=== PATIENT | male | born 1955 | race Caucasian/White ===

== ENCOUNTER → 2020-06-07 | Outpatient (CLI) | payer OTHER ==
[2020-06-07 15:24] LABS: International Normalized Ratio 1.51; Prothrombin Time Results 15.8 Sec (9.7-11.5)
== END | disposition home or self-care (01) ==
LOC: LAB 13:10 → LAB SHORT 13:10
PROVIDERS: Family Medicine
DX: Z79.01 Long term (current) use of anticoagulants (principal); Z51.81 Encounter for therapeutic drug level monitoring
CPT/HCPCS: 85610

== ENCOUNTER → 2020-08-30 | Outpatient (CLI) | payer OTHER ==
[2020-08-30 15:20] LABS: International Normalized Ratio 2.32; Prothrombin Time Results 23.7 Sec (9.7-11.5)
== END | disposition home or self-care (01) ==
LOC: LAB SHORT 12:57 → LAB 12:57
PROVIDERS: Family Medicine
DX: Z79.01 Long term (current) use of anticoagulants (principal); Z51.81 Encounter for therapeutic drug level monitoring
CPT/HCPCS: 85610

== ENCOUNTER → 2020-11-01 | Outpatient (CLI) | payer OTHER ==
[2020-11-01 14:48] LABS: International Normalized Ratio 2.69; Prothrombin Time Results 27.2 Sec (9.7-11.5)
== END | disposition home or self-care (01) ==
LOC: LAB SHORT 10:50 → LAB 10:50
PROVIDERS: Family Medicine
DX: Z79.01 Long term (current) use of anticoagulants (principal); Z51.81 Encounter for therapeutic drug level monitoring
CPT/HCPCS: 85610

== ENCOUNTER → 2021-06-02 | Outpatient (CLI) | payer OTHER ==
[2021-06-02 14:57] LABS: BASOPHILS ABSOLUTE AUTO 0.05 K/mm3 (0.00-0.23); BASOPHILS PERCENT AUTO 1 % (0-2); EOSINOPHILS ABSOLUTE AUTO 0.11 K/mm3 (0.00-0.68); EOSINOPHILS PERCENT AUTO 1 % (0-6); IMMATURE GRAN ABSOLUTE AUTO 0.02 K/mm3 (0.00-0.10); IMMATURE GRAN PERCENT AUTO 0 % (0-1); LYMPHOCYTES ABSOLUTE AUTO 1.86 K/mm3 (0.84-5.20); LYMPHOCYTES PERCENT AUTO 22 % (21-46); MONOCYTES ABSOLUTE AUTO 0.63 K/mm3 (0.16-1.47); MONOCYTES PERCENT AUTO 8 % (4-13); Mean Corpuscular HGB 31.5 pg (26.0-34.0); Mean Corpuscular HGB Conc 33.3 g/dL (31.5-36.5); Mean Corpuscular Volume 94 fL (80-100); Mean Platelet Volume 9.6 fL (9.1-12.4); NEUTROPHILS ABSOLUTE AUTO 5.77 K/mm3 (1.96-9.15); NEUTROPHILS PERCENT AUTO 68 % (41-73); Platelet Count 409 K/mm3 (150-400); RDW Coefficient Variation 12.5 % (11.7-14.2); RDW Standard Deviation 43.2 fL (35.1-46.3); Red Blood Cell Count 4.13 M/mm3 (4.30-5.90); White Blood Cell Count 8.44 K/mm3 (4.00-11.30)
[2021-06-02 15:16] LABS: Alanine Aminotransfer (ALT/SGP 45 U/L (12-78); Albumin, Blood 3.9 g/dL (3.4-5.0); Albumin/Globulin Ratio 0.9 (0.8-1.8); Alk Phos 115 U/L (50-136); Anion Gap 9 mmol/L (6-16); Aspartate Aminotrans (AST/SGOT 18 U/L (12-37); Bilirubin, Total 0.3 mg/dL (0.1-1.0); Blood Urea Nitrogen 21 mg/dL (8-24); Bun/Creatinine Ratio 20.4 (12.0-20.0); CO2, Blood 24 mmol/L (21-32); Calcium, Blood 9.7 mg/dL (8.5-10.1); Chloride, Blood 105 mmol/L (98-108); Creatinine, Blood 1.03 mg/dL (0.60-1.20); Globulin, Blood 4.2 g/dL (2.2-4.0); Glomerular Filtration Rate >60 (60-); Glucose, Blood 108 mg/dL (70-99); Potassium, Blood 4.4 mmol/L (3.5-5.5); Prostate Specific Antigen 0.261 ng/mL (0.000-4.000); Sodium, Blood 138 mmol/L (136-145); Total Protein, Blood 8.1 g/dL (6.4-8.2)
== END | disposition home or self-care (01) ==
LOC: LAB SHORT 09:10
PROVIDERS: Physician Assistant
DX: Z12.5 Encounter for screening for malignant neoplasm of prostate (principal); I10 Essential (primary) hypertension
CPT/HCPCS: 80053; 85025; G0103

== ENCOUNTER → 2022-09-22 | Outpatient (CLI) | payer OTHER | END | disposition home or self-care (01) | LOC: LAB SHORT 17:38 | DX: L60.2 Onychogryphosis (principal); B35.1 Tinea unguium | CPT/HCPCS: 87220 ==

== ENCOUNTER 2022-10-01 09:20 | Day surgery (SDC) | payer OTHER ==
[~2022-10-01] VITALS: Ht 172.7 cm; Wt 81.4 kg
[2022-10-01] MEDS ORDERED: METO50ER (09:48)
[2022-10-01] MEDS ORDERED: Coumadin2 MG (09:49)
[2022-10-01] MEDS ORDERED: ATOR10 (09:49)
[2022-10-01] MEDS ORDERED: Amlodipine Bes2.5 MG (09:49)
[2022-10-01] MEDS ORDERED: HYDCHL25 (09:50)
[2022-10-01] MEDS ORDERED: Lisinopril2.5 MG (09:51)
== END 2022-10-01 11:49 | disposition home or self-care (01) ==
LOC: ORSCSDS 09:20
PROVIDERS: Student in an Organized Health Care Education/Training Program
PROC: 0DBN8ZX Excision of Sigmoid Colon, Via Natural or Artificial Opening Endoscopic, Diagnostic (ICD-10-PCS; principal; 2022-10-01 10:45)
PROC: 0DBK8ZX Excision of Ascending Colon, Via Natural or Artificial Opening Endoscopic, Diagnostic (ICD-10-PCS; principal; 2022-10-01 10:45)
PROC: 0DBL8ZX Excision of Transverse Colon, Via Natural or Artificial Opening Endoscopic, Diagnostic (ICD-10-PCS; principal; 2022-10-01 10:45)
DX: R19.5 Other fecal abnormalities (principal); D12.5 Benign neoplasm of sigmoid colon; D12.2 Benign neoplasm of ascending colon; D12.3 Benign neoplasm of transverse colon; K57.30 Diverticulosis of large intestine without perforation or abscess without bleeding; K64.4 Residual hemorrhoidal skin tags; I10 Essential (primary) hypertension; E78.5 Hyperlipidemia, unspecified; Z87.891 Personal history of nicotine dependence; G40.909 Epilepsy, unspecified, not intractable, without status epilepticus; Z79.01 Long term (current) use of anticoagulants; Z79.899 Other long term (current) drug therapy
CPT/HCPCS: 88305; J2405; J2704; J7120

== ENCOUNTER → 2022-12-09 | Outpatient (CLI) | payer OTHER ==
[~2022-12-09] MED LIST: ATOR10; Amlodipine Bes2.5 MG; Coumadin2 MG; HYDCHL25; Lisinopril2.5 MG; METO50ER; XARELTO20 M1 PO
== END ==
LOC: LAB SHORT 07:45 → PLD 07:45
DX: R91.8 Other nonspecific abnormal finding of lung field (principal)
CPT/HCPCS: 88305; 88341; 88342

== ENCOUNTER 2022-12-10 06:54 | Inpatient (IN) | payer OTHER ==
[~2022-12-10] VITALS: Ht 172.7 cm; Wt 83.7 kg
[~2022-12-10 06:54] MED LIST changes: -ATOR10; +ATOR10 PO; -METO50ER; +METO50ER PO; -XARELTO20 M1 PO
[2022-12-10 07:33] LABS: BASOPHILS ABSOLUTE AUTO 0.05 K/mm3 (0.00-0.23); BASOPHILS PERCENT AUTO 0 % (0-2); EOSINOPHILS ABSOLUTE AUTO 0.08 K/mm3 (0.00-0.68); EOSINOPHILS PERCENT AUTO 1 % (0-6); Hematocrit 20.9 % (37.0-53.0); Hemoglobin 7.1 g/dL (13.5-17.5); IMMATURE GRAN ABSOLUTE AUTO 0.08 K/mm3 (0.00-0.10); IMMATURE GRAN PERCENT AUTO 1 % (0-1); LYMPHOCYTES ABSOLUTE AUTO 1.23 K/mm3 (0.84-5.20); LYMPHOCYTES PERCENT AUTO 8 % (21-46); MONOCYTES ABSOLUTE AUTO 0.87 K/mm3 (0.16-1.47); MONOCYTES PERCENT AUTO 6 % (4-13); Mean Corpuscular Volume 88 fL (80-100); Mean Platelet Volume 8.8 fL (9.1-12.4); NEUTROPHILS ABSOLUTE AUTO 12.77 K/mm3 (1.96-9.15); NEUTROPHILS PERCENT AUTO 85 % (41-73); Platelet Count 546 K/mm3 (150-400); RDW Coefficient Variation 13.5 % (11.7-14.2); RDW Standard Deviation 43.1 fL (35.1-46.3); Red Blood Cell Count 2.37 M/mm3 (4.30-5.90); White Blood Cell Count 15.08 K/mm3 (4.00-11.30)
[2022-12-10] MEDS ORDERED: XARELTO20 M1 PO (07:43)
[2022-12-10 07:51] LABS: Albumin, Blood 2.5 g/dL (3.4-5.0); Albumin/Globulin Ratio 0.5 (0.8-1.8); Bilirubin, Direct 0.1 mg/dL (0.0-0.3); Bilirubin, Indirect 0.2 mg/dL (0.1-0.7); Bilirubin, Total 0.3 mg/dL (0.1-1.0); Calcium, Blood 9.2 mg/dL (8.5-10.1); Globulin, Blood 4.7 g/dL (2.2-4.0); Magnesium, Blood 1.8 mg/dL (1.6-2.4); Potassium, Blood 4.3 mmol/L (3.5-5.5); Total Protein, Blood 7.2 g/dL (6.4-8.2)
[2022-12-10 08:44] LABS: Influenza A, PCR NEGATIVE (NEGATIVE); Influenza B, PCR NEGATIVE (NEGATIVE); Resp Syncytial Virus, PCR NEGATIVE (NEGATIVE); SARS-Cov-2 (COVID-19) PCR, MMC NEGATIVE (NEGATIVE)
[2022-12-10 09:51] LABS: Source, Urine Clean Catch
[2022-12-10 09:59] LABS: Appearance, Urine Clear (Clear); Bilirubin, Urine Neg (Neg); Blood, Urine Neg (Neg); Color, Urine Yellow (P-Yellow); Glucose Qualitative, Urine Neg (Neg); Ketones, Urine Neg (Neg); Leukocyte Esterase, Urine Neg (Neg); Nitrite, Urine Neg (Neg); Protein, Urine Neg (Neg); Specific Gravity, Urine 1.005 (1.003-1.022); Urobilinogen, Urine NORM (Normal)
--- NOTE | 2022-12-10 12:00 | NUR ---
ED Palliative Care Consult Spoke with Dr Rich and Hospitalist Rigoberto. Discussed case and concerns. Pt appears to have new diagnosis of metastatic cancer. Pt had biospy from bulb grader yesterday. Pt to be admitted under observation and may benefit from supportive visit. Pt resting on gurney upon arrival. Pt A&OX4 and denies pain at this time. Pt's spouse at bedside. Offered therapeutic listening as Pt and spouse report feeling overwhelmed. Offered suggestions to assist with easing burden. Continued supportive visit. Pt reports having felt weak and tired for quite some time and is now struggling with mobility. Brief gentle discusion regarding planning for the future and the potential need for caregiver assistance. Discussed considering applying for APD. Continued supportive visit. Discussed the importance of speaking with oncologist and asking questions in order to make a well informed decision. Pt and spouse agreeable with continued PC visits. Spoke with NAMITA Perla and discussed case. Palliative Care will remain available
--- NOTE | 2022-12-10 14:00 | NUR ---
PT ARRIVED TO ROOM VIA W/C FROM ED. ABLE TO TRANSFER SELF IN TO BED. NOT PRESENT ON ARRIVAL. VERY KIND WORDS FROM PT. ADMISSION BEING COMPLETED. 1 UNIT OF PRBC ORDERED AND WILL BE STARTED SOON. PT WITH OCC WELLING OF TEARS BUT HE QUICKLY STOPS. ENCOURAGED TO TALK HE FEELS THE NEED. STATES HE HAS NUMBNESS THAT COMES AND GOES IN HIS LEGS THAT IS MORE NOTICEABLE WHEN LAYING DOWN OR RECLINING. USES A CANE FOR MOBILITY.
[2022-12-10 14:28] LABS: Percent Saturation 10.6 % (20.0-50.0)
--- NOTE | 2022-12-10 18:35 | NUR ---
SHIFT SUMMARY UP IN CHAIR FOR MEAL. STATED HE NEEDS TO START EATING MORE DUE TO A DECREASED APPETITE. HAS A LARGE LUMP ON THE R SIDE OF HIS HEAD THAT HE REPORTED HE ORIGINALLY THOUGHT WAS FROM HITTING IT ON THE CAR DOOR AND THEN THE REFRIGERATOR DOOR. CONTINUES TO OCC WELL UP WITH TEARS AND QUICKLY ATTEMPTS TO STOP IT. ENCOURAGED AGAIN TO EXPRESS HIS FEELINGS AND THAT ITS OK TO CRY. STATED HE FEELS VERY BAD ABOUT HIS NEEDING TO DO MORE AND MORE AT HOME. DID COME UP FOR A SHORT TIME THIS AFTERNOON AND SAT WITH HIM. CURRENTLY DENIES PAIN. WILL REPORT CONDITION TO ONCOMING SHIFT.
[2022-12-11 05:02] LABS: BASOPHILS ABSOLUTE AUTO 0.08 K/mm3 (0.00-0.23); BASOPHILS PERCENT AUTO 1 % (0-2); EOSINOPHILS ABSOLUTE AUTO 0.22 K/mm3 (0.00-0.68); EOSINOPHILS PERCENT AUTO 1 % (0-6); Hematocrit 22.5 % (37.0-53.0); Hemoglobin 7.7 g/dL (13.5-17.5); IMMATURE GRAN ABSOLUTE AUTO 0.13 K/mm3 (0.00-0.10); IMMATURE GRAN PERCENT AUTO 1 % (0-1); LYMPHOCYTES ABSOLUTE AUTO 1.86 K/mm3 (0.84-5.20); LYMPHOCYTES PERCENT AUTO 11 % (21-46); MONOCYTES ABSOLUTE AUTO 1.37 K/mm3 (0.16-1.47); MONOCYTES PERCENT AUTO 8 % (4-13); Mean Corpuscular HGB 29.6 pg (26.0-34.0); Mean Corpuscular HGB Conc 34.2 g/dL (31.5-36.5); Mean Corpuscular Volume 87 fL (80-100); Mean Platelet Volume 8.8 fL (9.1-12.4); NEUTROPHILS ABSOLUTE AUTO 12.83 K/mm3 (1.96-9.15); NEUTROPHILS PERCENT AUTO 78 % (41-73); Platelet Count 471 K/mm3 (150-400); RDW Coefficient Variation 14.1 % (11.7-14.2); RDW Standard Deviation 44.2 fL (35.1-46.3); White Blood Cell Count 16.49 K/mm3 (4.00-11.30)
--- NOTE | 2022-12-11 05:20 | NUR ---
SHIFT MOSTLY UNREMARKABLE. PT TOOK 2100 MEDICATIONS WITHOUT DIFFICULTY AND HAS SLEPT THROUGH MUCH OF SHIFT THEREAFTER. PAIN ADEQUATELY MANAGED ON CURRENT MEDICATION REGIMEN. PATIENT IS VERY PLEASANT, AOX4, AND COOPERATIVE WITH CARE. CLEAR EMOTIONAL BURDEN ON PATIENT GIVEN ALL THE MEDICAL CONDITION NEWS HE RECIEVED YESTERDAY. ATTEMPTING TO KEEP POSITIVE ATTITUDE BUT FREQUENTLY TEARS UP UPON THINKING ABOUT CONDITION. OTHERWISE PT HAS HAD NO COMPLAINTS THROUGHOUT SHIFT. ONEYDA LIGHT LEFT WITHIN REACH .
[2022-12-11 05:48] LABS: Bun/Creatinine Ratio 22.4 (12.0-20.0); Calcium, Blood 8.7 mg/dL (8.5-10.1); Creatinine, Blood 2.23 mg/dL (0.60-1.20); Potassium, Blood 4.4 mmol/L (3.5-5.5)
--- NOTE | 2022-12-11 10:48 | NUR ---
"Spiritual Care | Pt. request Pt. is awake in bed and welcomes my visit. Spouse is present. Pt. displays evidence of being brave, but is unsettled by his diagnosis. Listen with emparthy and a calming presence. Rapport is established, and I facilitated a short life review. Prayed with Pt. and Spouse. Pt. displayed evidence of being engaged and comforted. Pt. and spouse verbalized gratitude for the spiritual care visit and welcome [facility] to return."
--- NOTE | 2022-12-11 13:56 | NUR ---
Spoke with Physical Therapist earlier today. Pt recommended for home health. Supportive visit this afternoon. Pt resting in bed and reports 5/10 pain. Offered therapeutic listening as spouse Bonita reports still feeling overwhelmed. She is intermittently tearul. Offered suggestions including leaning of friends and family, people she can speak about her fears and anxieties. Continued therapeutic listening. Pt reports not having a BM since yesterday and normally has a BM daily. Pt is interested in adding aditional medication to assist if appropriate. Spouse Bonita expresses interest in receiving resources for caregiver support. Left message with Primary RN Noelle reporting Pt's pain and consideration of adding Miralax to assist with BM if hospitalist is agreeable. Spoke with NAMITA Che and relayed spouses request for caregiver support. Palliative Care will remain available
--- NOTE | 2022-12-11 16:29 | NUR ---
ALERT AND ORIENTED X4, MAKES NEEDS KNOWN, INCREASED PERCOCET TO TWO TABLETS, HEADACHE PAIN STAYED ALL DAY, REPORTED TO DR TODD, IVF INFUSING, PATIENT HAS POOR INTAKE, MEDICATED WOTH PRN MIRALAX, PT OKAY PATIENT TO AMBULATE TO THE BATHROOM INDEPENDENTLY BUT PATIENT NOW HAS A IV POLE, PATIENT CHANEGD TO INPATIENT STATUS, PALLIATIVE VISITED WITH PATIENT AND , PATIENT AND EMOTIONAL ABOUT THE RECENT FINDINGS, WILL RELAY TO PM NAMITA
--- NOTE | 2022-12-12 04:14 | NUR ---
SHIFT MOSTLY UNREMARKABLE. PRN PERCOCET DOSAGE INCREASED ON DAY SHIFT. PAIN ADEQUATELY MANAGED ON UPDATED MEDICATION REGIMEN.FLUIDS HAVE BEEN RUNNING THROUGHOUT SHIFT. PT HAS HAD FEW COMPLAINTS AND HAS SLEPT THROUGH MOST OF SHIFT. EARLY THIS MORNING, PT REQUESTED COUGH DROP FOR SORE THROAT. WILL SPEAK WITH HOSPITALIST. SHIFT OTHERWISE UNREMARKABLE. CALL LIGHT LEFT WITHIN REACH.
[2022-12-12 08:05] LABS: BASOPHILS ABSOLUTE AUTO 0.08 K/mm3 (0.00-0.23); BASOPHILS PERCENT AUTO 0 % (0-2); EOSINOPHILS ABSOLUTE AUTO 0.14 K/mm3 (0.00-0.68); EOSINOPHILS PERCENT AUTO 1 % (0-6); Hemoglobin 8.8 g/dL (13.5-17.5); IMMATURE GRAN ABSOLUTE AUTO 0.22 K/mm3 (0.00-0.10); IMMATURE GRAN PERCENT AUTO 1 % (0-1); LYMPHOCYTES ABSOLUTE AUTO 2.56 K/mm3 (0.84-5.20); LYMPHOCYTES PERCENT AUTO 10 % (21-46); MONOCYTES ABSOLUTE AUTO 1.73 K/mm3 (0.16-1.47); MONOCYTES PERCENT AUTO 7 % (4-13); Mean Corpuscular HGB 29.4 pg (26.0-34.0); Mean Corpuscular HGB Conc 32.6 g/dL (31.5-36.5); Mean Corpuscular Volume 90 fL (80-100); Mean Platelet Volume 9.1 fL (9.1-12.4); NEUTROPHILS ABSOLUTE AUTO 20.84 K/mm3 (1.96-9.15); NEUTROPHILS PERCENT AUTO 82 % (41-73); Platelet Count 598 K/mm3 (150-400); RDW Coefficient Variation 14.1 % (11.7-14.2); Red Blood Cell Count 2.99 M/mm3 (4.30-5.90); White Blood Cell Count 25.57 K/mm3 (4.00-11.30)
[2022-12-12 08:21] LABS: Bun/Creatinine Ratio 14.8 (12.0-20.0); Calcium, Blood 9.2 mg/dL (8.5-10.1); Creatinine, Blood 3.86 mg/dL (0.60-1.20); Potassium, Blood 4.8 mmol/L (3.5-5.5)
--- NOTE | 2022-12-12 09:09 | NUR ---
DR TODD AND RESIDENT IN SEEING PATIENT, AT BEDSIDE
--- NOTE | 2022-12-12 10:23 | NUR ---
BLADDER SCAN 16 MLS FOUND
[2022-12-12 15:35] LABS: Bun/Creatinine Ratio 13.3 (12.0-20.0); Calcium, Blood 8.9 mg/dL (8.5-10.1); Creatinine, Blood 4.36 mg/dL (0.60-1.20); Potassium, Blood 5.1 mmol/L (3.5-5.5)
--- NOTE | 2022-12-12 16:10 | NUR ---
REPORTED PATIENT PROJECTILE EMESIS, PASSING GAS, VOIDING MINIMAL AMOUNTS BLADDER SCAN SAID 16 ML, TO RESIDENT EGEOLU, NO CHANGES YET
--- NOTE | 2022-12-12 18:07 | NUR ---
NO ACUTE CHANGES, MEDICATED FOR PAIN WITH SCHEDULED OXYCONTIN AND PRN PERCOCET, ZOFRAN FOR EMESIS, PATIENT UNABLE TO HOLD FOOD OR FLUIDS DOWN, RELAY TO RESIDENT EGEOLU, NO CHANGES YET, RENAL US DONE TODAY, PATIENT SHOWERED TODAY, NO MENTATION CHANGES, SKIN BREAKDOWN TO COCCYX-ZINC CREAM USED AND MEPILEX IN PLACE, CALL LIGHT WITH IN REACH, MAKES NEEDS KNOWN, WILL RELAY TO PM RN
--- NOTE | 2022-12-12 22:26 | NUR ---
RECIEVED REPORT FROM MED FLOOR RN REGARDING THIS PT. PT TO ROOM AT 2226. PT SATS 95% ON BIPAP 15 LMP. TITRATED DOWN TO 10 LPM WITHIN 20 MINUTES OF ARRIVAL WITH SPO2 >93%. HR 118 WITH BP 133/79. IV IN RIGHT AC LEAKING. POWER GLIDE INSERTED BY UDAY STONE BANKER. TEMP 96.9 UPON ARRIVAL. PT LEGS SHOW SIGNIFICANT MOTTLING UPON ARRIVAL AND GROWING WORSE WITHIN THE HOUR. DR CALLED TO COME TO ROOM TO PUT EYES ON PT. DR CARDOZA AT BEDSIDE WITH ORDERS PROMPTLY. 16FR TEMP IFSCHER PLACED BY THIS RN. SEE EMAR AND FULL ASSESSMENT FOR MORE DETAILS.
--- NOTE | 2022-12-12 22:27 | NUR ---
CALLED HOSPITALIST REGARDING PTS OXYGEN DEMANDS INCREASING. UPON BEGINNING OF SHIFT DURING ROUTINE VITALS WE FOUND PT SATING 76% ON RA, PLACED PT ON 5L NC AND HE RECOVERED TO 93% ON 5L. AT THAT TIME THE PT WAS NOT SOB AND OR EXIBITING ANY RESPIRATORY DISTRESS. THE PT DENIED ANY CHEST PAIN/PRESSURE OR INCREASED WORK OF BREATHING. I CALLED THE HOSPITALIST TO GET AN ORDER FOR THE RESPIRATORY THERAPIST TO EVALUATE THE PT. I WENT INTO THE PTS ROOM AND FOUND THAT HE HAD INCREASED WORK OF BREATHING. I THEN PUT THE PULSE OX ON THE PT AND FOUND THAT HE WAS SATING 85% ON 5L. I CALLED THE RESPIRATORY THERAPIST AND THE RESPIRATORY THERPAIST SAID TO PLACE THE PT ON 15L UNTIL HE COULD GET INTO ROOM TO FURTHER EVALUATE THE PT. THE RESPIRATORY THERPIST CAME INTO THE PTS ROOM AND DECIDED TO PLACE THE PT ON BIPAP, WELL THE RESPIRATORY THERAPIST ADVISED THAT WE CALL THE DOCTOR TO GET THE OKAY TO TRANSFER THE PT TO ICU FOR INCREASED OXYGEN DEMANDS. THE PT BECAME BRADYCARDIC DURING THAT TIME THAT RT WAS PLACING THE PT ON BIPAP. HIS HEART RATE DROPPED DOWN TO THE 30'S FOR ABOUT A MINUTE BEFORE RETURING TO THE 110'S. REPORT WAS GIVEN ON THE PT TO THE ICU NURSE TAKING OVER CARE OF PT WELL THE PTS FAMILY WAS NOTIFIED OF THE PTS TRANSFER TO ICU.
[2022-12-12 23:27] LABS: PCO2 Arterial 27.9 mmHg (35-45)
[2022-12-12 23:28] LABS: PO2 Arterial 97.1 mmHg (80-100)
[2022-12-12 23:30] LABS: pH Blood Arterial 7.27 (7.35-7.45)
[2022-12-12 23:33] LABS: BASOPHILS ABSOLUTE AUTO 0.04 K/mm3 (0.00-0.23); BASOPHILS PERCENT AUTO 0 % (0-2); EOSINOPHILS PERCENT AUTO 0 % (0-6); Hematocrit 24.3 % (37.0-53.0); Hemoglobin 7.9 g/dL (13.5-17.5); IMMATURE GRAN ABSOLUTE AUTO 0.46 K/mm3 (0.00-0.10); IMMATURE GRAN PERCENT AUTO 2 % (0-1); LYMPHOCYTES ABSOLUTE AUTO 0.62 K/mm3 (0.84-5.20); LYMPHOCYTES PERCENT AUTO 2 % (21-46); MONOCYTES PERCENT AUTO 3 % (4-13); Mean Corpuscular HGB 29.5 pg (26.0-34.0); Mean Corpuscular HGB Conc 32.5 g/dL (31.5-36.5); Mean Corpuscular Volume 91 fL (80-100); NEUTROPHILS ABSOLUTE AUTO 25.28 K/mm3 (1.96-9.15); NEUTROPHILS PERCENT AUTO 93 % (41-73); Platelet Count 581 K/mm3 (150-400); RDW Coefficient Variation 14.3 % (11.7-14.2); RDW Standard Deviation 47.7 fL (35.1-46.3); Red Blood Cell Count 2.68 M/mm3 (4.30-5.90)
[2022-12-12 23:53] LABS: Albumin, Blood 2.1 g/dL (3.4-5.0); Anion Gap 16 mmol/L (6-16); Blood Urea Nitrogen 65 mg/dL (8-24); Bun/Creatinine Ratio 13.1 (12.0-20.0); CO2, Blood 16 mmol/L (21-32); Calcium, Blood 8.9 mg/dL (8.5-10.1); Chloride, Blood 92 mmol/L (98-108); Creatinine, Blood 4.96 mg/dL (0.60-1.20); Glomerular Filtration Rate 12 (60-); Glucose, Blood 205 mg/dL (70-99); Potassium, Blood 5.7 mmol/L (3.5-5.5); Sodium, Blood 124 mmol/L (136-145)
[2022-12-13 01:25] LABS: Source, Urine Foley catheter
[2022-12-13 01:33] LABS: Blood, Urine 5+ (Neg); Glucose Qualitative, Urine Neg (Neg); Ketones, Urine Neg (Neg); Leukocyte Esterase, Urine Neg (Neg); Nitrite, Urine Neg (Neg); Protein, Urine 3+ (Neg); Specific Gravity, Urine 1.015 (1.003-1.022); Urobilinogen, Urine NORM (Normal)
--- NOTE | 2022-12-13 01:38 | NUR ---
NO PO MEDICATIONS GIVEN D/T HIGH ASPIRATION RISK WITH BIPAP AND HIGH DEPENDANCE OF OXYGEN NEEDS. ORDERS EMAR FOR IV MEDICATIONS AT THIS TIME.
[2022-12-13 01:42] LABS: Appearance, Urine Cloudy (Clear); Bacteria Few /hpf; Bilirubin, Urine 2+ (Neg); Color, Urine Amber (P-Yellow); Squamous Epithelial Cells Few /hpf (Few)
[2022-12-13 01:43] LABS: Amorphous Heavy (0-Heavy); Transitional Epithelial Cells Few /hpf (0-Rare)
[2022-12-13 03:19] LABS: Base Excess Venous -2.9 mmol/L; Bicarbonate Venous 21.6 mmol/L (24.0-30.0); PCO2 Venous 37.4 mmHg (38-42); PO2 Venous 29.5 mmHg (38-42); pH Blood Venous 7.38 (7.34-7.37)
[2022-12-13 03:22] LABS: BASOPHILS ABSOLUTE AUTO 0.03 K/mm3 (0.00-0.23); BASOPHILS PERCENT AUTO 0 % (0-2); EOSINOPHILS PERCENT AUTO 0 % (0-6); Hematocrit 21.7 % (37.0-53.0); Hemoglobin 7.4 g/dL (13.5-17.5); IMMATURE GRAN ABSOLUTE AUTO 0.29 K/mm3 (0.00-0.10); IMMATURE GRAN PERCENT AUTO 1 % (0-1); LYMPHOCYTES ABSOLUTE AUTO 1.05 K/mm3 (0.84-5.20); LYMPHOCYTES PERCENT AUTO 4 % (21-46); MONOCYTES ABSOLUTE AUTO 1.51 K/mm3 (0.16-1.47); MONOCYTES PERCENT AUTO 6 % (4-13); Mean Corpuscular HGB Conc 34.1 g/dL (31.5-36.5); Mean Corpuscular Volume 88 fL (80-100); Mean Platelet Volume 8.8 fL (9.1-12.4); NEUTROPHILS ABSOLUTE AUTO 21.18 K/mm3 (1.96-9.15); NEUTROPHILS PERCENT AUTO 88 % (41-73); Platelet Count 482 K/mm3 (150-400); RDW Coefficient Variation 14.1 % (11.7-14.2); RDW Standard Deviation 44.9 fL (35.1-46.3); Red Blood Cell Count 2.47 M/mm3 (4.30-5.90); White Blood Cell Count 24.06 K/mm3 (4.00-11.30)
[2022-12-13 03:36] LABS: Anion Gap 7 mmol/L (6-16); Blood Urea Nitrogen 64 mg/dL (8-24); CO2, Blood 24 mmol/L (21-32); Calcium, Blood 8.8 mg/dL (8.5-10.1); Chloride, Blood 93 mmol/L (98-108); Creatinine, Blood 4.94 mg/dL (0.60-1.20); Glomerular Filtration Rate 12 (60-); Glucose, Blood 124 mg/dL (70-99); Phosphorus, Blood 6.6 mg/dL (2.5-4.9); Potassium, Blood 5.6 mmol/L (3.5-5.5); Sodium, Blood 124 mmol/L (136-145)
--- NOTE | 2022-12-13 06:11 | NUR ---
END OF SHIFT SUMMARY A/O X4. PT ABLE TO MAKE NEEDS KNOWN. NO FAMILY AT BEDSIDE DURING THIS SHIFT. RESP- >93% ON BIPAP 16/10 RATE 18 @ 60%. PT HAS NONPRODUCTIVE COUGH THAT SOUNDS LIKE A SHOUT AT TIMES. CARDIAC- PT WAS SINUS TACHY AT ADMIT TO UNIT. HAS SINCE BEEN SR WITH HR IN 80'S-90'S. NO OTHER SIGNIFICANT DETAILS TO REPORT AT THIS TIME. GI,- TEMP FISCHER PLACED UPON ADMIT WITH 5 MLS URINE OUTPUT. 5 MLS URINE SENT TO LAB FOR TESTING. DAY SHIFT WILL BE NOTIFIED OF MORE URINE NEEDED FOR FURTHER TESTING ORDERED. LAB IS AWARE OF THE ROGER. INTEG- PT HAS SCATTERED RAISED BUMPS THROUGHOUT SKIN AREAS. MOST NOTABLY TO RIGHT AMISH AND RIGHT UPPER ARM. CT AND XRAY REPORTS ARE RESULTED, PLEASE SEE REPORTS FOR FURTHER INFORMATION. POWER GLIDE INSERTED UPON ADMIT TO RIGHT UPPER ARM. PT IS SALINE LOCKED AT THIS TIME. FENT GIVE WITH PAIN 10/10 WITH MINIMAL COMFORTABLE RESULTS. PT CALLED A FEW TIMES WANTING UPDATES. UDAY Clemons SYSTEM ADMIN HAS TALKED WITH HER FOR THE UPDATES. WILL CONTINUE TO MONITOR UNTIL REPORT GIVEN TO VANDANA RN.
--- NOTE | 2022-12-13 12:44 | NUR ---
PT RESTING, TAKING IV PAIN MEDICATIONS WHEN DIRECTLY ASKED ABOUT PAIN, OTHER- TAYLOR DOESN'T COMPLAIN. URINE OUTPUT SMALL. IV FLUIDS RUNNING AT 200ML/HR PER . AT BEDSIDE. NC @ 3L WITH SATS 93%.
[2022-12-13 12:50] LABS: Bun/Creatinine Ratio 12.9 (12.0-20.0); Calcium, Blood 8.3 mg/dL (8.5-10.1); Creatinine, Blood 5.12 mg/dL (0.60-1.20); Potassium, Blood 5.2 mmol/L (3.5-5.5)
--- NOTE | 2022-12-13 13:06 | NUR ---
ECHO DOPPLAR BEING PERFORMED.
[2022-12-13 15:14] LABS: Source, Urine Foley catheter
[2022-12-13 15:17] LABS: Appearance, Urine Cloudy (Clear); Blood, Urine 5+ (Neg); Color, Urine Amber (P-Yellow); Glucose Qualitative, Urine Neg (Neg); Ketones, Urine Neg (Neg); Leukocyte Esterase, Urine 1+ (Neg); Nitrite, Urine Neg (Neg); Protein, Urine 3+ (Neg); Specific Gravity, Urine 1.015 (1.003-1.022); Urobilinogen, Urine NORM (Normal)
[2022-12-13 15:22] LABS: Bilirubin, Urine 1+ (Neg)
--- NOTE | 2022-12-13 15:30 | NUR ---
MR MENDOZA WAS HAVING AN EPISODE OF DRY HEAVES AROUND 1500, GIVEN ZOFRAN PER MAR, NOTED THAT BLOOD WAS IN THE TUBING OF THE CATHETER. CALL TO IN REGARDS TO THE BLOOD HAVING NOT BEEN SEEN THUS FAR TODAY. ASKED FOR BLADDER SCAN, SCAN DONE WITH 0, 0, AND 23ML. AND THEN HERE TO SEE THE PATIENT. IS CONSULTED, A CALL IS MADE TO WHO WILL SEE THE PATIENT LATER THIS AFTERNOON.
[2022-12-13 15:46] LABS: Bacteria Many /hpf; Mucus Light (0-Heavy); Red Blood Cells, Urine 50-100 /hpf (0-2); Squamous Epithelial Cells Rare /hpf (Few); White Blood Cells, Urine 25-50 /hpf (0-5)
--- NOTE | 2022-12-13 18:22 | NUR ---
JOSÉ ANTONIO IS SO PLEASANT AND DOESN'T COMPLAIN. HE HAS BEEN ON NC 2-4L MOST OF THE DAY, HAS DECLINED ANY MEALS AND TAKEN IN LOTS OF WATER. HE HAS HAD DRY HEAVES ONCE AND HAD A UO OF 248. DID SEE THE PT, RECOMMENDED THE FLUIDS BE DECREASED TO 50ML/HR. PT CONTINUES TO ADMIT TO PAIN ABOUT THE HEAD AND RASTAFARIAN REGION AND WILL ACCEPT PAIN MEDICATION FOR THIS. HE HAD SOME BLOOD NOTED IN HIS CATHETER TUBING AND IT WAS DISCUSSED WITH PROVIDERS. HE CONTINUES TO BE A/O AND UNDERSTANDING OF HIS CARE THUS FAR. HE WISHES TO BE ABLE TO RETURN HOME TO NORMAL ACTIVITY. HE CURRENTLY IS ON HIS BIPAP AND THE FIO2 WAS DECREASED TO 50%, 28/06 AND HE REQUESTS TO WEAR THIS.
[2022-12-13 18:41] LABS: Bun/Creatinine Ratio 12.3 (12.0-20.0); Calcium, Blood 8.4 mg/dL (8.5-10.1); Creatinine, Blood 5.21 mg/dL (0.60-1.20); Potassium, Blood 5.7 mmol/L (3.5-5.5)
[2022-12-13 22:09] LABS: Phosphorus, Blood 6.4 mg/dL (2.5-4.9)
[2022-12-13 22:29] LABS: Creatinine, Urine Random 75.4 mg/dL (27.00-270.00); Protein, Urine Random 149.7 mg/dL (0.0-11.9)
[2022-12-13 23:26] LABS: Bun/Creatinine Ratio 12.7 (12.0-20.0); Calcium, Blood 9.6 mg/dL (8.5-10.1); Creatinine, Blood 5.04 mg/dL (0.60-1.20); Potassium, Blood 5.3 mmol/L (3.5-5.5)
[2022-12-14 04:07] LABS: BASOPHILS ABSOLUTE AUTO 0.05 K/mm3 (0.00-0.23); BASOPHILS PERCENT AUTO 0 % (0-2); EOSINOPHILS ABSOLUTE AUTO 0.02 K/mm3 (0.00-0.68); EOSINOPHILS PERCENT AUTO 0 % (0-6); Hematocrit 21.3 % (37.0-53.0); Hemoglobin 7.1 g/dL (13.5-17.5); IMMATURE GRAN ABSOLUTE AUTO 0.14 K/mm3 (0.00-0.10); IMMATURE GRAN PERCENT AUTO 1 % (0-1); LYMPHOCYTES ABSOLUTE AUTO 1.23 K/mm3 (0.84-5.20); LYMPHOCYTES PERCENT AUTO 6 % (21-46); MONOCYTES ABSOLUTE AUTO 1.44 K/mm3 (0.16-1.47); MONOCYTES PERCENT AUTO 7 % (4-13); Mean Corpuscular HGB 29.5 pg (26.0-34.0); Mean Corpuscular HGB Conc 33.3 g/dL (31.5-36.5); Mean Corpuscular Volume 88 fL (80-100); NEUTROPHILS ABSOLUTE AUTO 18.11 K/mm3 (1.96-9.15); NEUTROPHILS PERCENT AUTO 86 % (41-73); Platelet Count 485 K/mm3 (150-400); RDW Standard Deviation 45.3 fL (35.1-46.3); Red Blood Cell Count 2.41 M/mm3 (4.30-5.90); White Blood Cell Count 20.99 K/mm3 (4.00-11.30)
[2022-12-14 04:24] LABS: Albumin, Blood 1.9 g/dL (3.4-5.0); Anion Gap 9 mmol/L (6-16); Blood Urea Nitrogen 66 mg/dL (8-24); Bun/Creatinine Ratio 13.4 (12.0-20.0); CO2, Blood 22 mmol/L (21-32); Calcium, Blood 9.3 mg/dL (8.5-10.1); Chloride, Blood 95 mmol/L (98-108); Creatinine, Blood 4.94 mg/dL (0.60-1.20); Glomerular Filtration Rate 12 (60-); Glucose, Blood 116 mg/dL (70-99); Phosphorus, Blood 6.4 mg/dL (2.5-4.9); Potassium, Blood 5.2 mmol/L (3.5-5.5); Sodium, Blood 126 mmol/L (136-145)
--- NOTE | 2022-12-14 06:25 | NUR ---
SHIFT SUMMERY PT HAS WORN BIPAP ALL NIGHT PER HIS REQUEST. OXYGEN SAT HAVE BEEN >90%. HE HAD SOME NAUSEA EARLIER IN THE SHIFT. HE WAS GIVEN ZOFRAN AND HAD NO MORE COMPLAINTS OF NAUSEA. PAIN MEDICATION GIVEN PER EMAR. PT IS ALERT AND ORIENTED X4. HE WAS ABLE TO GET UP TO THE BEDSIDE COMMODE W/ASSISTANCE AND HAD A SMALL BOWEL MOVEMENT. FISCHER CATHETER INTACT AND DRAINING YELLOW URINE. HE HAS BEEN SR ON THE MONIOR, AFEBRILE, BP WNL.
--- NOTE | 2022-12-14 09:10 | NUR ---
ASSUMED CARE / DR TODD: REPORT RECEIVED FROM LEANDRO Rome RN. ASSUMED CARE OF THIS PT AT APPROX 0700. ON ASSESSMENT, THE PT IS A&O TO ALL, STS HAVING PAIN R/T HEADACHE THAT BEGAN AFTER THE MASS ON THE RIGHT SIDE OF HIS HEAD DEVELOPED & HAS BEEN PERSISTANT SINCE THAT TIME. SCHEDULED MEDS PER EMAR. LS CLEAR, DIM IN BASES. PT ALTERNATING BETWEEN BIPAP W/ SETTINGS: 16/10 & 35% FIO2 OR 4L NC W/ O2 SATS > 92%. MONITOR SHOWS SR W/ HR 80-90s, BP STABLE. PT HAS NO GI COMPLAINTS & IS TOLERATING PO INTAKE WELL. TEMP PROBE FISCHER PATENT/ DRAINING CLOUDY YELLOW URINE. SKIN CONDITION OVERALL FRAGILE W/ NUMEROUS ABRASIONS & MASSESS. BARRIER CREAM APPLIED TO COCCYX & BUTTOCKS PER PT REQUEST. Q2H REPOSITIONING TO MAINTAIN SKIN INTEGRITY. PROVIDERS AT BEDSIDE THIS AM TO EVAL PT. HE HAS BEEN DOWNGRADED TO PCU STATUS. NO OTHER CHANGES AT THIS TIME. WILL CONTINUE TO MONITOR & UPDATE NEEDED.
[2022-12-14 12:30] LABS: Bun/Creatinine Ratio 14.5 (12.0-20.0); Calcium, Blood 9.2 mg/dL (8.5-10.1); Creatinine, Blood 4.63 mg/dL (0.60-1.20); Potassium, Blood 4.9 mmol/L (3.5-5.5)
--- NOTE | 2022-12-14 14:55 | NUR ---
Pt resting in bed upon arrival. Pt has a friend at bedside. Offered supportive visit. Offered therapeutic listening as Pt confirms his understanding of plan of care. Listened as he reports plan to pursue treatment for his cancer if there are treatment options available. Continued supportive visit. Pt O2 saturations briefly decline and after breathing instructions, Pt quickly climbs back to the 94-96. Ended visit to allow Pt to rest. Spoke with Primary RN Aure and discussed case. Spoke with Dr Penny and discussed case. Pt may benefit from discussion regarding code status on next visit from Palliative Care. Palliative Care will remain available
--- NOTE | 2022-12-14 18:05 | NUR ---
SHIFT SUMMARY: NO ACUTE CHANGES SINCE PRIOR UPDATES. PT REMAINS A&O, PLEASANT & COOPERATIVE. LS DIM IN BASES, PT ON 3L NC W/ O2 SATS > 92%. REQUESTS TO WEAR BIPAP PRN. MONITOR SHOWS SR W/ HR 80-90s, BP STABLE. PT HAS NO GI COMPLAINTS, IS TOLERATING PO INTAKE WELL. TEMP FISCHER PATENT/ DRAINING CLOUDY YELLOW URINE. SKIN CONDITION OVERALL INTACT, FRAGILE. Q2H REPOSITIONING TO MAINTAIN SKIN INTEGRITY. WILL CONTINUE TO MONITOR & UPDATE NEEDED.
[2022-12-15 04:20] LABS: BASOPHILS ABSOLUTE AUTO 0.05 K/mm3 (0.00-0.23); BASOPHILS PERCENT AUTO 0 % (0-2); EOSINOPHILS ABSOLUTE AUTO 0.05 K/mm3 (0.00-0.68); EOSINOPHILS PERCENT AUTO 0 % (0-6); Hematocrit 20.2 % (37.0-53.0); Hemoglobin 6.8 g/dL (13.5-17.5); IMMATURE GRAN ABSOLUTE AUTO 0.17 K/mm3 (0.00-0.10); IMMATURE GRAN PERCENT AUTO 1 % (0-1); LYMPHOCYTES ABSOLUTE AUTO 1.42 K/mm3 (0.84-5.20); LYMPHOCYTES PERCENT AUTO 8 % (21-46); MONOCYTES ABSOLUTE AUTO 1.53 K/mm3 (0.16-1.47); MONOCYTES PERCENT AUTO 8 % (4-13); Mean Corpuscular HGB 29.7 pg (26.0-34.0); Mean Corpuscular HGB Conc 33.7 g/dL (31.5-36.5); Mean Corpuscular Volume 88 fL (80-100); Mean Platelet Volume 9.4 fL (9.1-12.4); NEUTROPHILS ABSOLUTE AUTO 15.01 K/mm3 (1.96-9.15); NEUTROPHILS PERCENT AUTO 82 % (41-73); Platelet Count 456 K/mm3 (150-400); RDW Coefficient Variation 14.6 % (11.7-14.2); RDW Standard Deviation 46.4 fL (35.1-46.3); Red Blood Cell Count 2.29 M/mm3 (4.30-5.90); White Blood Cell Count 18.23 K/mm3 (4.00-11.30)
[2022-12-15 04:45] LABS: Albumin, Blood 1.8 g/dL (3.4-5.0); Anion Gap 9 mmol/L (6-16); Blood Urea Nitrogen 61 mg/dL (8-24); Bun/Creatinine Ratio 15.5 (12.0-20.0); CO2, Blood 21 mmol/L (21-32); Calcium, Blood 8.6 mg/dL (8.5-10.1); Chloride, Blood 97 mmol/L (98-108); Creatinine, Blood 3.94 mg/dL (0.60-1.20); Glomerular Filtration Rate 16 (60-); Glucose, Blood 113 mg/dL (70-99); Phosphorus, Blood 4.5 mg/dL (2.5-4.9); Potassium, Blood 4.9 mmol/L (3.5-5.5); Sodium, Blood 127 mmol/L (136-145)
--- NOTE | 2022-12-15 05:10 | NUR ---
SHIFT SUMMARY: At start of shift, pt was on 3L NC which I titrated up to 4L to maintain sats above 92%. He requested to be put on BIPAP for sleep. On BIPAP, sats improved to high 90s. Intermittently complains of 8/10 pain in his head/ face where there is a large tumor on the right side. Medicated with 5/325 Percocet, after which he fell asleep and appeared comfortable. This AM, he requested to remove the BIPAP and go back on nasal cannula. Now requiring 6L NC to maintain sats above 92%. Hemoglobin on morning labs was 6.8. Notified Dr. Clark and received order for 1units PRBCs. Blood consent verified in chart. Waiting for type and screen results.
--- NOTE | 2022-12-15 08:24 | NUR ---
AM NOTE... ASSUMED CARE OF PT AT 0700, PT IS A&Ox4. HE IS CURRENTLY ON 6L NC WITH O2 SATS >90% L/S CLEAR T/O THE UPPER/MID LOBES FINE CRACKLES NOTED IN THE BASES. PT IS IN SR/ST 90'S-100'S BP STABLE. 1+ EDEMA IS NOTED TO HIS BLE. BT PRESENT AND HYPOACTIVE, ABD IS SOFT AND NONTENDER TO PALPATION. PROVIDERS AT THE BEDSIDE TO ASSESS THE PT. NEW ORDERS GIVEN FOR MEDICAL FLOOR TRANSFER. PT'S AALIYAH WAS D/C'd. NS RUNNING AT 50MLS/HR. PLAN IS TO TRANSFUSE 1 UNIT PRBCs D/T HGB AT 6.8. WILL CONTINUE TO MONITOR.
--- NOTE | 2022-12-15 10:17 | NUR ---
"Spiritual Care Visit | Pt Request Pt. is sitting up in a chair and welcomes my visit. Pt is in the middle of a blood transfusion. Pt. is pleasant but unsettled about his prognosis. Listen with empathy and a calming presence. Normalize the Pt. experience. Pt. verbalized a desire to keep the visit brief. Prayed with Pt. Pt. verbalized gratitude for the spiritual care visit. Pt. welcomed this patient navigator to visit again."
--- NOTE | 2022-12-15 11:16 | NUR ---
PT UPDATE... PT TRANSFER TO MEDICAL FLOOR. ALL OF PT'S BELONGINGS PACKED AND SENT WITH THE PT. PT'S AT THE BEDSIDE, SHE WAS UPDATED ON THE PT'S CONDITION AND PLAN OF CARE. PT'S TRANSFUSION OF PRBCs ENDED AT 1100. REPORT GIVEN TO JENNIFER BREAUX.
[2022-12-15 11:59] LABS: Hematocrit 23.6 % (37.0-53.0); Hemoglobin 7.9 g/dL (13.5-17.5)
--- NOTE | 2022-12-15 13:16 | NUR ---
RN RECEIVED REPORT FROM WOOD AND HARDWARE OUTFITTER AND PT WAS TRANSFERRED TO FLOOR IN STABLE CONDITION.
--- NOTE | 2022-12-15 13:25 | NUR ---
Pt visit this afternoon. Pt resting in bed upon arrival. Per request from hospitalist, engaged in discussion regarding code status wishes. Educated on life sustaining measures including risks and consequences of CPR/Intubation with V/U made by Pt. Pt wishes are to remain a full code. Offered therapeutic listening as Pt reports his associate professor of forestry did not get a large enough tissue sample for pathology report. Pt is hoping that another biopsy can be performed here at the hospital. Continued therapeutic listening and offered gentle voice. Answered questions and validated concerns. Palliative Care will remain available
[2022-12-15 18:16] LABS: International Normalized Ratio 1.19; Prothrombin Time Results 12.4 Sec (9.7-11.5)
--- NOTE | 2022-12-15 18:32 | NUR ---
SHIFT SUMMARY-NO ACUTE EVENTS THIS SHIFT SINCE TRANSFERRED FROM ICU. PT DID REFUSE LUNCH AND DINNER. AAOX4. CALLS APPROPRIATELY.
--- NOTE | 2022-12-16 06:12 | NUR ---
MANAGER OF ADMINISTRATION SUMMARY PT A/OX4. COOPERATIVE WITH CARE. PT IS ANXIOUS ABOUT DETAILS OF CARE AND REQUIRED ASSURANCE. PT 3L OF O2 AT START OF SHIFT. DESATTING DOWN TO TRIPP 70'S/LOW 80'S. INCREASED O2 TO 6L AND CONTACTED RT. RT AT BESIDE AND SET UP BIPAP WITH CONT PULSE OX. ABLE TO MAINTAIN SAT >90% T/O THE NIGHT. PT ABLE TO MAKE NEEDS KNOWN. CALL LIGHT ACCESSIBLE.
[2022-12-16 07:04] LABS: BASOPHILS ABSOLUTE AUTO 0.05 K/mm3 (0.00-0.23); BASOPHILS PERCENT AUTO 0 % (0-2); EOSINOPHILS ABSOLUTE AUTO 0.03 K/mm3 (0.00-0.68); EOSINOPHILS PERCENT AUTO 0 % (0-6); Hematocrit 22.3 % (37.0-53.0); Hemoglobin 7.5 g/dL (13.5-17.5); IMMATURE GRAN ABSOLUTE AUTO 0.18 K/mm3 (0.00-0.10); IMMATURE GRAN PERCENT AUTO 1 % (0-1); LYMPHOCYTES ABSOLUTE AUTO 1.11 K/mm3 (0.84-5.20); LYMPHOCYTES PERCENT AUTO 6 % (21-46); MONOCYTES PERCENT AUTO 8 % (4-13); Mean Corpuscular HGB 29.5 pg (26.0-34.0); Mean Corpuscular HGB Conc 33.6 g/dL (31.5-36.5); Mean Corpuscular Volume 88 fL (80-100); Mean Platelet Volume 9.2 fL (9.1-12.4); NEUTROPHILS ABSOLUTE AUTO 15.41 K/mm3 (1.96-9.15); NEUTROPHILS PERCENT AUTO 84 % (41-73); Platelet Count 438 K/mm3 (150-400); RDW Coefficient Variation 14.5 % (11.7-14.2); RDW Standard Deviation 46.2 fL (35.1-46.3); Red Blood Cell Count 2.54 M/mm3 (4.30-5.90); White Blood Cell Count 18.28 K/mm3 (4.00-11.30)
[2022-12-16 07:23] LABS: Albumin, Blood 1.7 g/dL (3.4-5.0); Anion Gap 9 mmol/L (6-16); Blood Urea Nitrogen 59 mg/dL (8-24); Bun/Creatinine Ratio 17.1 (12.0-20.0); CO2, Blood 22 mmol/L (21-32); Chloride, Blood 96 mmol/L (98-108); Creatinine, Blood 3.46 mg/dL (0.60-1.20); Glomerular Filtration Rate 19 (60-); Glucose, Blood 111 mg/dL (70-99); Phosphorus, Blood 4.3 mg/dL (2.5-4.9); Potassium, Blood 4.5 mmol/L (3.5-5.5); Sodium, Blood 127 mmol/L (136-145); Uric Acid, Blood 10.1 mg/dL (3.5-7.2)
--- NOTE | 2022-12-16 18:42 | NUR ---
SHIFT SUMMARY- PT'S PAIN WELL CONTROLLED WITH PAIN MEDS. NO ACUTE EVENTS TODAY. PT DID HAVE LOOSE STOOLS AND X1 EPISODE OF INCONTINENCE OF BOWEL AND BLADDER. PT IS ON 6 L O2 CONTINUOUSLY.
[2022-12-17 04:51] LABS: BASOPHILS ABSOLUTE AUTO 0.04 K/mm3 (0.00-0.23); BASOPHILS PERCENT AUTO 0 % (0-2); EOSINOPHILS ABSOLUTE AUTO 0.08 K/mm3 (0.00-0.68); EOSINOPHILS PERCENT AUTO 1 % (0-6); Hemoglobin 7.4 g/dL (13.5-17.5); IMMATURE GRAN ABSOLUTE AUTO 0.14 K/mm3 (0.00-0.10); IMMATURE GRAN PERCENT AUTO 1 % (0-1); LYMPHOCYTES ABSOLUTE AUTO 1.43 K/mm3 (0.84-5.20); LYMPHOCYTES PERCENT AUTO 8 % (21-46); MONOCYTES ABSOLUTE AUTO 1.57 K/mm3 (0.16-1.47); MONOCYTES PERCENT AUTO 9 % (4-13); Mean Corpuscular HGB 29.5 pg (26.0-34.0); Mean Corpuscular HGB Conc 33.6 g/dL (31.5-36.5); Mean Corpuscular Volume 88 fL (80-100); Mean Platelet Volume 9.6 fL (9.1-12.4); NEUTROPHILS ABSOLUTE AUTO 14.24 K/mm3 (1.96-9.15); NEUTROPHILS PERCENT AUTO 81 % (41-73); Platelet Count 458 K/mm3 (150-400); RDW Coefficient Variation 14.5 % (11.7-14.2); RDW Standard Deviation 45.8 fL (35.1-46.3); Red Blood Cell Count 2.51 M/mm3 (4.30-5.90)
--- NOTE | 2022-12-17 05:43 | NUR ---
NOT SURE JOSÉ ANTONIO GOT ANY SLEEP AT ALL LAST NIGHT. THIS RN AND THE FINANCIAL ASSOCIATE TRIED TO GIVE THE PATIENT SOME SPACE AND BUNDLE OUR TASKS TOGETHER. HOWEVER, EACH TIME WE WOULD GO IN, HE WOULD BE WIDE AWAKE. HE IS A VERY ANXIOUS AND FRIGHTENED MAN TRYING TO GRASP THE GRAVITY OF HIS SITUATION. PAIN WAS WELL CONTROLLED PER THE PATIENT (EXCEPT WHEN THIS RN ASSISTED HIM TO PIVOT TO THE COMMODE) WITH HIS CURRENT REGIMEN. LUNG SOUNDS DIM IN BASES AND OVER TUMOR AREAS. REFUSED ALL BOWEL MEDS HE HAD SEVERAL VERY SOFT STOOLS YESTERDAY.
[2022-12-17 06:25] LABS: Albumin, Blood 1.8 g/dL (3.4-5.0); Anion Gap 9 mmol/L (6-16); Blood Urea Nitrogen 55 mg/dL (8-24); Bun/Creatinine Ratio 18.8 (12.0-20.0); CO2, Blood 23 mmol/L (21-32); Calcium, Blood 9.1 mg/dL (8.5-10.1); Chloride, Blood 96 mmol/L (98-108); Creatinine, Blood 2.92 mg/dL (0.60-1.20); Glomerular Filtration Rate 23 (60-); Glucose, Blood 117 mg/dL (70-99); Sodium, Blood 128 mmol/L (136-145)
--- NOTE | 2022-12-17 08:36 | NUR ---
PT LOW O2 SATS- RT AT THE BEDSIDE, O2 SATS LOW 80'S, NC WAS OFF. LUNG SOUNDS CLEAR, PT DOES NOT APPEAR TO BE IN DISTRESS. PROBE CHANGED BY RT TO R/O MALFUNCTION. O2 SATS STILL LOW. PT STILL NOT IN DISTRESS INCREASED TO 12L HIGH FLLOW NC TO MAINTAIN SATS ABOVE 90%. CALLED DR WHITNEY WHO CAME TO THE BEDSIDE D/T STATUS CHANGE. STAT CHEST XR ORDERED. PT ASSISTED TO THE CHAIR SATS DROPPED TO 89% ON 12L HIGH FLOW NC AND THEN INCREASED TO 92-94%. DR TODD AND DR CARMONA AT THE BEDSIDE AT THIS TIME. WILL CTM. US GUIDED BIOPSY SCHEDULED FOR 2PM TODAY.
--- NOTE | 2022-12-17 11:45 | NUR ---
CALLED DR TODD- PPT HAS 80MG IV LASIX DUE TO BE GIVEN, BP 105/58 OK TO GIVE PER DR TODD.
--- NOTE | 2022-12-17 18:29 | NUR ---
SHIFT SUMMARY- PT ALERT AND ORIENTED, A LITTLE FORGETFUL, VERY POLITE. PT FEELS LIKE HE IS A BOTHER AND TENDS TO NOT CALL FOR THINGS HE NEEDS, FREQUENT ROUNDING T/O THE DAY HAS HELPED HIM REMAIN COMFORTABLE. PT DECLINED THE NEED FOOR PAIN MEDICATION PRIOR TO THIS AFTERNOON. PT IS A LITTLE OBSESSIVE COMPLULSIVE ABOUT HOW THINGS ARE LAID OUT FOR HIM. HE SEEMS A LITTLE ANXIOUS BUT NOT IN DISTRESS WITH IT. DR TODD IS AWARE. PT HAD AN EPISODE THIS MORNING OF LOW O2 SATS SWITCHED TO HIGH FLOW O2 BY RT AT 12L, AFTER THE EVENT THE PT WAS SITTING UP IN THE CHAIR, DR TODD AT THE BEDSIDE O2 REDUCED TO 5L VIA NC. CHEST XR COMPLETED. ORDER FOR 80MG IV LASIX ADMINISTERED O2 REQUIREMENTS REDUCED FURTHER AFTER THAT, PT CURRENTLY SITTING UP IN BED, SATS 97% REDUCED O2 TO 3L VIA HIGH FLOW NC. CALL LIGHT IN REACH, NO S&S OF DISTRESS NOTED AT THIS TIME WILL CTM AND PASS ON TO NIGHT RN IN BEDSIDE REPORT.
[2022-12-18 04:49] LABS: BASOPHILS ABSOLUTE AUTO 0.04 K/mm3 (0.00-0.23); BASOPHILS PERCENT AUTO 0 % (0-2); EOSINOPHILS ABSOLUTE AUTO 0.15 K/mm3 (0.00-0.68); EOSINOPHILS PERCENT AUTO 1 % (0-6); Hematocrit 21.8 % (37.0-53.0); Hemoglobin 7.3 g/dL (13.5-17.5); IMMATURE GRAN ABSOLUTE AUTO 0.14 K/mm3 (0.00-0.10); IMMATURE GRAN PERCENT AUTO 1 % (0-1); LYMPHOCYTES ABSOLUTE AUTO 1.15 K/mm3 (0.84-5.20); LYMPHOCYTES PERCENT AUTO 7 % (21-46); MONOCYTES ABSOLUTE AUTO 1.48 K/mm3 (0.16-1.47); MONOCYTES PERCENT AUTO 9 % (4-13); Mean Corpuscular HGB 29.4 pg (26.0-34.0); Mean Corpuscular HGB Conc 33.5 g/dL (31.5-36.5); Mean Corpuscular Volume 88 fL (80-100); Mean Platelet Volume 9.6 fL (9.1-12.4); NEUTROPHILS ABSOLUTE AUTO 13.32 K/mm3 (1.96-9.15); NEUTROPHILS PERCENT AUTO 82 % (41-73); Platelet Count 446 K/mm3 (150-400); RDW Coefficient Variation 14.2 % (11.7-14.2); RDW Standard Deviation 45.4 fL (35.1-46.3); Red Blood Cell Count 2.48 M/mm3 (4.30-5.90); White Blood Cell Count 16.28 K/mm3 (4.00-11.30)
[2022-12-18 05:14] LABS: Albumin, Blood 1.7 g/dL (3.4-5.0); Anion Gap 6 mmol/L (6-16); Blood Urea Nitrogen 52 mg/dL (8-24); Bun/Creatinine Ratio 21.6 (12.0-20.0); CO2, Blood 26 mmol/L (21-32); Calcium, Blood 9.1 mg/dL (8.5-10.1); Chloride, Blood 94 mmol/L (98-108); Creatinine, Blood 2.41 mg/dL (0.60-1.20); Glomerular Filtration Rate 29 (60-); Glucose, Blood 117 mg/dL (70-99); Phosphorus, Blood 3.4 mg/dL (2.5-4.9); Potassium, Blood 3.7 mmol/L (3.5-5.5); Sodium, Blood 126 mmol/L (136-145)
--- NOTE | 2022-12-18 06:15 | NUR ---
JOSÉ ANTONIO WAS ABLE TO GET A LITTLE MORE REST THAN HE DID THE PREVIOUS NIGHT HE WAS QUITE ADAMANT ABOUT THE POSSIBILITY OF THIS RN GETTING AN ORDER FOR SOMETHING TO HELP CALM HIS ANXIETY AND IN TURN GET HIM SOME REST. BUT IT ENDED UP, HE WAS ABLE TO REST COMFORTABLY WITHOUT IT. PAIN WELL CONTROLLED BY CURRENT SCHEDULED PAIN REGIMEN. HE IS JUST GETTING ANXIOUS FOR SOME ANSWERS AND THEN TO GO HOME AND TRY TO SOAK IT ALL IN. 02 SATURATIONS REMAINED IN THE MID 90'S ALL NIGHT ON 3 LITERS HIGH FLOW NC
--- NOTE | 2022-12-18 18:21 | NUR ---
SHIFT SUMMARY PT A&O X 3. CAN BE FORGETFUL AT TIMES. PT TO FOR LUNCH & DINNER. APPETITE IS MARGINAL. PT REQUESTED A VANILLA ICE CREAM SHAKE. FOOD REQUEST PLACED FOR ONE AT DINNER. PT DENIED PAIN, SOB OR ANY DISCOMFORT. PT'S IN TO VISIT TODAY. IS PLEASANT & COOPERATIVE WITH ALL CARE. IS ABLE TO APPROPRIATELY MAKE NEEDS KNOWN AND USES CALL LIGHT APPROPRIATELY.
[2022-12-19 04:47] LABS: BASOPHILS ABSOLUTE AUTO 0.05 K/mm3 (0.00-0.23); BASOPHILS PERCENT AUTO 0 % (0-2); EOSINOPHILS ABSOLUTE AUTO 0.09 K/mm3 (0.00-0.68); EOSINOPHILS PERCENT AUTO 1 % (0-6); Hematocrit 23.4 % (37.0-53.0); Hemoglobin 7.8 g/dL (13.5-17.5); IMMATURE GRAN ABSOLUTE AUTO 0.24 K/mm3 (0.00-0.10); IMMATURE GRAN PERCENT AUTO 1 % (0-1); LYMPHOCYTES PERCENT AUTO 10 % (21-46); MONOCYTES ABSOLUTE AUTO 1.48 K/mm3 (0.16-1.47); MONOCYTES PERCENT AUTO 8 % (4-13); Mean Corpuscular HGB 29.4 pg (26.0-34.0); Mean Corpuscular HGB Conc 33.3 g/dL (31.5-36.5); Mean Corpuscular Volume 88 fL (80-100); Mean Platelet Volume 9.6 fL (9.1-12.4); NEUTROPHILS ABSOLUTE AUTO 15.75 K/mm3 (1.96-9.15); NEUTROPHILS PERCENT AUTO 81 % (41-73); Platelet Count 493 K/mm3 (150-400); RDW Coefficient Variation 14.3 % (11.7-14.2); RDW Standard Deviation 46.2 fL (35.1-46.3); Red Blood Cell Count 2.65 M/mm3 (4.30-5.90); White Blood Cell Count 19.51 K/mm3 (4.00-11.30)
[2022-12-19 05:09] LABS: Albumin, Blood 1.7 g/dL (3.4-5.0); Anion Gap 6 mmol/L (6-16); Blood Urea Nitrogen 48 mg/dL (8-24); Bun/Creatinine Ratio 25.1 (12.0-20.0); CO2, Blood 27 mmol/L (21-32); Calcium, Blood 9.1 mg/dL (8.5-10.1); Chloride, Blood 94 mmol/L (98-108); Creatinine, Blood 1.91 mg/dL (0.60-1.20); Glomerular Filtration Rate 38 (60-); Glucose, Blood 124 mg/dL (70-99); Phosphorus, Blood 2.7 mg/dL (2.5-4.9); Potassium, Blood 3.7 mmol/L (3.5-5.5); Sodium, Blood 127 mmol/L (136-145); Uric Acid, Blood 9.5 mg/dL (3.5-7.2)
--- NOTE | 2022-12-19 05:11 | NUR ---
SHIFT SUMMARY PT IS A&O4, SB WITH A FWW TO BSC, 5L NC, VSS, PRN AND SCHEDULED PAIN MEDICATION GIVEN PER EMAR, NO ACUTE OVERNIGHT EVENTS CONTINUE POC
--- NOTE | 2022-12-19 14:49 | NUR ---
COCCYX AREA MEPIPLEX REPLACED ON COCCYX AREA. SMALL 1/2 DIME SIZE OPEN AREA IN FOLD AT TOP OF GLUTEAL FOLD. NO DRAINAGE NOTED.
--- NOTE | 2022-12-19 19:17 | NUR ---
SHIFT SUMMARY NO ACUTE CHANGES THIS SHIFT. VSS. MEDICATED WITH SCHEDULED AM PAIN MEDICATION, NO C/O OF PAIN BETWEEN AM DOSE & SCHEDULED EVENING DOSE. MEDICATED ONCE AT END OF SHIFT FOR NAUSEA WITH ZOFRAN WITH GOOD RELIEF STATED BY PT. PT HAS BEEN ON RA ALL SHIFT WITH O2 SATS VIA CONT BI-OX >90%. IS PLEASANT & COOPERATIVE WITH ALL CARE. HAS SAT UP IN CHAIR OFF & ON TODAY. WAS IN TO VISIT FOR MOST OF THE MORNING. PLAN IS LIKELY HOME WITH HH.
[2022-12-20 04:53] LABS: BASOPHILS ABSOLUTE AUTO 0.04 K/mm3 (0.00-0.23); BASOPHILS PERCENT AUTO 0 % (0-2); EOSINOPHILS ABSOLUTE AUTO 0.04 K/mm3 (0.00-0.68); EOSINOPHILS PERCENT AUTO 0 % (0-6); Hematocrit 24.4 % (37.0-53.0); IMMATURE GRAN ABSOLUTE AUTO 0.26 K/mm3 (0.00-0.10); IMMATURE GRAN PERCENT AUTO 1 % (0-1); LYMPHOCYTES ABSOLUTE AUTO 2.03 K/mm3 (0.84-5.20); LYMPHOCYTES PERCENT AUTO 10 % (21-46); MONOCYTES ABSOLUTE AUTO 1.64 K/mm3 (0.16-1.47); MONOCYTES PERCENT AUTO 8 % (4-13); Mean Corpuscular HGB 29.3 pg (26.0-34.0); Mean Corpuscular HGB Conc 32.8 g/dL (31.5-36.5); Mean Corpuscular Volume 89 fL (80-100); Mean Platelet Volume 10.1 fL (9.1-12.4); NEUTROPHILS ABSOLUTE AUTO 16.96 K/mm3 (1.96-9.15); NEUTROPHILS PERCENT AUTO 81 % (41-73); Platelet Count 518 K/mm3 (150-400); RDW Coefficient Variation 14.3 % (11.7-14.2); RDW Standard Deviation 46.3 fL (35.1-46.3); Red Blood Cell Count 2.73 M/mm3 (4.30-5.90); White Blood Cell Count 20.97 K/mm3 (4.00-11.30)
[2022-12-20 05:10] LABS: Bun/Creatinine Ratio 25.5 (12.0-20.0); Calcium, Blood 8.9 mg/dL (8.5-10.1); Creatinine, Blood 1.57 mg/dL (0.60-1.20); Potassium, Blood 3.5 mmol/L (3.5-5.5)
--- NOTE | 2022-12-20 06:39 | NUR ---
PT CALLS FOR NEEDS, DIRECT WITH CARE. PT PLACED BACK ON O2 SATS DIPPING BELOW 88, 2L NC AT THIS TIME.
--- NOTE | 2022-12-20 12:02 | NUR ---
Call back - Met with pt's spouse Bonita. Provided space for her to reflect on diagnosis. Bonita appears realistic about pt's diagnosis. She explain pt has fight in him and they plan on making an appointment for the cancer center to pursue treatment. Bonita is non-practicing Scientologist, prays to God, not a taoism attending. We discuss boundaries she has in place. She identifies her as the one who has helped her through difficult times, so this is extremely hard for her. Validation, gentle personal counselor, and prayer provided. She voiced gratitude for the visit.
--- NOTE | 2022-12-20 19:12 | NUR ---
SHIFT SUMMARY NO ACUTE CHANGES THIS SHIFT. VSS. A&O X 3-4. CAN BE FORGETFUL AT TIMES. DENIED NAUSEA THIS SHIFT. APPETITE IS POOR, WILL NOT EAT FOOD SENT ON HIS TRAYS. PT CONTINUES TO REQUEST VANILLA/STRAWBERRY PROTEIN SHAKE FROM KITCHEN (FOOD REQUEST MADE) HOWEVER KITCHEN DECLINED TO SEND. PT UP TO CHAIR FREQUENTLY WITH PERIODS OF REST IN BED. LARGE TUMOR BUMP ON R SIDE OF HEAD APPEARS TO HAVE ENLARGED. PANCAKE PROFESSIONAL CALLED IN FOR PT'S TEARY EYED . PALLIATIVE CARE CONSULT PENDING. PLAN IS FOR PT TO GO HOME WITH HH UPON DC.
--- NOTE | 2022-12-21 04:41 | NUR ---
PT HR HAS BEEN TACHY THIS SHIFT, STARTED RUNNING IN THE 150'S, DOES COME DOWN TO LOWER 110, BUT THEN BECOMES ELEVATED AGAIN. CALL TO DR PALACIO WITH ONE TIME ORDER LOPRESSOR 5MG IV. ADMINISTERED.
[2022-12-21 04:45] LABS: BASOPHILS ABSOLUTE AUTO 0.03 K/mm3 (0.00-0.23); BASOPHILS PERCENT AUTO 0 % (0-2); EOSINOPHILS ABSOLUTE AUTO 0.01 K/mm3 (0.00-0.68); EOSINOPHILS PERCENT AUTO 0 % (0-6); Hematocrit 23.4 % (37.0-53.0); Hemoglobin 7.8 g/dL (13.5-17.5); IMMATURE GRAN ABSOLUTE AUTO 0.33 K/mm3 (0.00-0.10); IMMATURE GRAN PERCENT AUTO 2 % (0-1); LYMPHOCYTES ABSOLUTE AUTO 1.47 K/mm3 (0.84-5.20); LYMPHOCYTES PERCENT AUTO 7 % (21-46); MONOCYTES ABSOLUTE AUTO 1.37 K/mm3 (0.16-1.47); MONOCYTES PERCENT AUTO 7 % (4-13); Mean Corpuscular HGB 29.5 pg (26.0-34.0); Mean Corpuscular HGB Conc 33.3 g/dL (31.5-36.5); Mean Corpuscular Volume 89 fL (80-100); NEUTROPHILS ABSOLUTE AUTO 17.65 K/mm3 (1.96-9.15); NEUTROPHILS PERCENT AUTO 85 % (41-73); Platelet Count 482 K/mm3 (150-400); RDW Coefficient Variation 14.3 % (11.7-14.2); Red Blood Cell Count 2.64 M/mm3 (4.30-5.90); White Blood Cell Count 20.86 K/mm3 (4.00-11.30)
[2022-12-21 05:03] LABS: Bun/Creatinine Ratio 26.3 (12.0-20.0); Calcium, Blood 8.5 mg/dL (8.5-10.1); Creatinine, Blood 1.52 mg/dL (0.60-1.20); Potassium, Blood 3.6 mmol/L (3.5-5.5)
--- NOTE | 2022-12-21 18:23 | NUR ---
SHIFT SUMMARY PT AxOx4. PLEASANT AND COOPERATIVE WITH CARE. PT'S IN ROOM THIS SHIFT FOR SUPPORT. PT HAVING ANXIOUS BEHAVIOR TODAY. THERAPEUTIC COMMUNICATION PROVIDED. PT AND MET WITH RESIDENT AND HOSPITALIST ON DC PLANS. CURRENT PLAN IS FOR PATIENT TO DC TOMORROW TO HOME WITH FOLLOW UP OUTPATIENT ONCOLOGY REFERRAL. PT MEDICATED FOR PAIN x1 THIS SHIFT. PT REPORTS POOR APPETITE TODAY. PT IS CURRENTLY RESTING IN BED WITH CALL LIGHT IN REACH. PT DENIES ANY NEEDS AT THIS TIME.
[2022-12-22 05:15] LABS: BASOPHILS ABSOLUTE AUTO 0.04 K/mm3 (0.00-0.23); BASOPHILS PERCENT AUTO 0 % (0-2); EOSINOPHILS ABSOLUTE AUTO 0.04 K/mm3 (0.00-0.68); EOSINOPHILS PERCENT AUTO 0 % (0-6); Hematocrit 22.6 % (37.0-53.0); Hemoglobin 7.4 g/dL (13.5-17.5); IMMATURE GRAN ABSOLUTE AUTO 0.25 K/mm3 (0.00-0.10); IMMATURE GRAN PERCENT AUTO 1 % (0-1); LYMPHOCYTES ABSOLUTE AUTO 1.59 K/mm3 (0.84-5.20); LYMPHOCYTES PERCENT AUTO 8 % (21-46); MONOCYTES ABSOLUTE AUTO 1.35 K/mm3 (0.16-1.47); MONOCYTES PERCENT AUTO 7 % (4-13); Mean Corpuscular HGB 29.1 pg (26.0-34.0); Mean Corpuscular HGB Conc 32.7 g/dL (31.5-36.5); Mean Corpuscular Volume 89 fL (80-100); Mean Platelet Volume 10.4 fL (9.1-12.4); NEUTROPHILS ABSOLUTE AUTO 17.56 K/mm3 (1.96-9.15); NEUTROPHILS PERCENT AUTO 84 % (41-73); Platelet Count 463 K/mm3 (150-400); RDW Coefficient Variation 14.4 % (11.7-14.2); RDW Standard Deviation 46.6 fL (35.1-46.3); Red Blood Cell Count 2.54 M/mm3 (4.30-5.90); White Blood Cell Count 20.83 K/mm3 (4.00-11.30)
--- NOTE | 2022-12-22 06:02 | NUR ---
PT CALLS FOR NEEDS, MEDICATED FOR PAIN X 2 WITH GOOD RESULTS, PT SLEPT WELL. NO C/O N/V OVERNIGHT. PLAN FOR D/C TODAY.
[2022-12-22 06:22] LABS: Bun/Creatinine Ratio 28.2 (12.0-20.0); Calcium, Blood 8.4 mg/dL (8.5-10.1); Creatinine, Blood 1.49 mg/dL (0.60-1.20); Potassium, Blood 3.4 mmol/L (3.5-5.5)
[2022-12-22] MEDS ORDERED: ONDA4 PO (12:31)
[2022-12-22] MEDS ORDERED: OXYC10ER PO (12:31)
[2022-12-22] MEDS ORDERED: Percocet 5-3251 EACH PO (12:32)
[2022-12-22] MEDS ORDERED: FURO20 PO (14:34)
--- NOTE | 2022-12-22 15:17 | NUR ---
PATIENT D/C'D TO HOME WITH HOME HEALTH. RX MEDICATIONS SENT TO [facility] AND [facility] FOR PERCOCET AND OXYCONTIN GIVEN TO PATIENTS GINETTE. DC INSTRUCTIONS AND EDUCATION DISCUSSED WITH PATIENT AND COPY PROVIDED. [employer] [facility] TO CONTACT PATIENT AND ALL EQUIPMENT T BE DELEIVERED TO PATIENTS HOME. PATIENT AND DENY ANY FURTHER QUESTIONS OR CONCERNS.
== END 2022-12-22 15:12 | disposition home health service (06) | DRG 686 ==
LOC: ER 06:54 → MEDS 06:55 → ICUE 12-11 10:21 → MEDS 12-11 10:21 → ICUE 12-12 22:34 → MEDS 12-15 11:06
PROVIDERS: Family Medicine; Hospitalist; Internal Medicine; Internal Medicine Nephrology; Nurse Practitioner Acute Care; Student in an Organized Health Care Education/Training Program; ADMIT Hospitalist
PROC: 5A09457 Assistance with Respiratory Ventilation, 24-96 Consecutive Hours, Continuous Positive Airway Pressure (ICD-10-PCS; principal; 2022-12-12)
PROC: 4A033R1 Measurement of Arterial Saturation, Peripheral, Percutaneous Approach (ICD-10-PCS; 2022-12-12)
PROC: 30233N1 Transfusion of Nonautologous Red Blood Cells into Peripheral Vein, Percutaneous Approach (ICD-10-PCS; 2022-12-15)
PROC: 0JB73ZX Excision of Back Subcutaneous Tissue and Fascia, Percutaneous Approach, Diagnostic (ICD-10-PCS; 2022-12-17)
DX: C79.01 Secondary malignant neoplasm of right kidney and renal pelvis (principal); I50.21 Acute systolic (congestive) heart failure; J96.01 Acute respiratory failure with hypoxia; N17.0 Acute kidney failure with tubular necrosis; E87.1 Hypo-osmolality and hyponatremia; E87.20 Acidosis, unspecified; C78.89 Secondary malignant neoplasm of other digestive organs; C78.4 Secondary malignant neoplasm of small intestine; C78.5 Secondary malignant neoplasm of large intestine and rectum; C79.89 Secondary malignant neoplasm of other specified sites; C79.02 Secondary malignant neoplasm of left kidney and renal pelvis; R63.4 Abnormal weight loss; C80.1 Malignant (primary) neoplasm, unspecified; I11.0 Hypertensive heart disease with heart failure; D63.0 Anemia in neoplastic disease; F10.10 Alcohol abuse, uncomplicated; D72.829 Elevated white blood cell count, unspecified; I73.9 Peripheral vascular disease, unspecified; D50.9 Iron deficiency anemia, unspecified; E87.5 Hyperkalemia; K59.00 Constipation, unspecified; E83.39 Other disorders of phosphorus metabolism; Z20.822 Contact with and (suspected) exposure to COVID-19; E86.0 Dehydration; H54.62 Unqualified visual loss, left eye, normal vision right eye; Z79.899 Other long term (current) drug therapy; Z87.891 Personal history of nicotine dependence; Z86.73 Personal history of transient ischemic attack (TIA), and cerebral infarction without residual deficits; Z79.02 Long term (current) use of antithrombotics/antiplatelets; Z98.890 Other specified postprocedural states; Z79.01 Long term (current) use of anticoagulants; Z79.811 Long term (current) use of aromatase inhibitors; Z68.23 Body mass index [BMI] 23.0-23.9, adult
CPT/HCPCS: 0241U; 20206; 36415; 36600; 51702; 70450; 70496; 70498; 71045; 71046; 71260; 74177; 76770; 76942; 80048; 80069; 80076; 81001; 81003; 82533; 82570; 82607; 82728; 82746; 82803; 82947; 83540; 83550; 83615; 83690; 83735; 83880; 83930; 83935; 84100; 84156; 84295; 84300; 84443; 84550; 85014; 85018; 85025; 85610; 85730; 86850; 86900; 86901; 86923; 87086; 88305; 88341; 88342; 88360; 93005; 93010; 93925; 94660; 94760; 94761; 94762; 96361; 96374-59; 96375-59; 97110; 97116; 97161; 97530; 99285-25; A9270; C1751; C8929; C9113; G0378; J1644; J1815; J1885; J1940; J1956; J2405; J2765; J2916; J3010; J7030; J7050; J7070; J7120; P9016; Q9957; Q9967

== ENCOUNTER 2022-12-23 11:25 | Observation (INO) | payer OTHER ==
[~2022-12-23] VITALS: Ht 177.8 cm; Wt 80.6 kg
[~2022-12-23 11:25] MED LIST changes: +FURO20 PO; +ONDA4 PO; +OXYC10ER PO; +Percocet 5-3251 EACH PO; +XARELTO20 M1 PO
[2022-12-23 11:34] VITALS: BP 91/58
[2022-12-23 11:53] LABS: BASOPHILS ABSOLUTE AUTO 0.05 K/mm3 (0.00-0.23); BASOPHILS PERCENT AUTO 0 % (0-2); EOSINOPHILS PERCENT AUTO 0 % (0-6); Hematocrit 26.6 % (37.0-53.0); Hemoglobin 8.2 g/dL (13.5-17.5); IMMATURE GRAN PERCENT AUTO 4 % (0-1); LYMPHOCYTES ABSOLUTE AUTO 1.23 K/mm3 (0.84-5.20); LYMPHOCYTES PERCENT AUTO 4 % (21-46); MONOCYTES ABSOLUTE AUTO 0.99 K/mm3 (0.16-1.47); MONOCYTES PERCENT AUTO 4 % (4-13); Mean Corpuscular HGB Conc 30.8 g/dL (31.5-36.5); Mean Platelet Volume 9.9 fL (9.1-12.4); NEUTROPHILS ABSOLUTE AUTO 24.91 K/mm3 (1.96-9.15); NEUTROPHILS PERCENT AUTO 88 % (41-73); Platelet Count 540 K/mm3 (150-400); RDW Coefficient Variation 14.6 % (11.7-14.2); Red Blood Cell Count 2.83 M/mm3 (4.30-5.90); White Blood Cell Count 28.18 K/mm3 (4.00-11.30)
[2022-12-23 11:57] LABS: Mean Corpuscular Volume 94 fL (80-100)
[2022-12-23 12:05] LABS: PCO2 Arterial 19.6 mmHg (35-45); PO2 Arterial 79.7 mmHg (80-100)
[2022-12-23 12:22] LABS: Magnesium, Blood 1.7 mg/dL (1.6-2.4)
[2022-12-23 12:31] LABS: Albumin, Blood 1.8 g/dL (3.4-5.0); Albumin/Globulin Ratio 0.4 (0.8-1.8); Bilirubin, Total 0.5 mg/dL (0.1-1.0); Bun/Creatinine Ratio 26.3 (12.0-20.0); Calcium, Blood 8.1 mg/dL (8.5-10.1); Creatinine, Blood 1.86 mg/dL (0.60-1.20); Globulin, Blood 4.6 g/dL (2.2-4.0); Potassium, Blood 5.1 mmol/L (3.5-5.5); Total Protein, Blood 6.4 g/dL (6.4-8.2)
--- NOTE | 2022-12-23 14:53 | NUR ---
Pt. is in the ED. The Pt. had been this chaplains Pt. prior to discharge yesterday. Spouse is present and is emotional. Offer encouragement and an empathetic calming presence. Spouse displays evidence of reduced anxiety. Prayed with Pt. and spouse. Both verbalized gratitude for the spiritual care visit.
--- NOTE | 2022-12-23 18:13 | NUR ---
Pt seen in ER comfort care started. Transfer to floor pt appears eminent.
== END 2022-12-23 20:15 ==
LOC: ER 11:25 → MEDS 15:07
PROVIDERS: Student in an Organized Health Care Education/Training Program; ADMIT Hospitalist
DX: A41.9 Sepsis, unspecified organism (principal); R65.20 Severe sepsis without septic shock; E87.1 Hypo-osmolality and hyponatremia; N17.9 Acute kidney failure, unspecified; J96.01 Acute respiratory failure with hypoxia; D64.9 Anemia, unspecified; Z51.5 Encounter for palliative care; Z86.73 Personal history of transient ischemic attack (TIA), and cerebral infarction without residual deficits; C80.1 Malignant (primary) neoplasm, unspecified; C79.9 Secondary malignant neoplasm of unspecified site; I73.9 Peripheral vascular disease, unspecified; I50.21 Acute systolic (congestive) heart failure; Z87.891 Personal history of nicotine dependence
CPT/HCPCS: 36415; 36600; 71045; 80053; 82803; 83605; 83735; 83880; 84145; 85025; 87040; 93005; 93010; 94640; 94664; 96374; 96375; 96376; 99285-25; A9270; G0378; J0456; J0692; J2060; J2270; J2405; J3010; J7030; J7050